=== PATIENT | female | born 1990 | race Caucasian/White ===

== ENCOUNTER 2020-04-06 20:10 | Emergency (ER) | payer SELFPAY ==
[2020-04-06] MEDS ORDERED: predniSONE 20 MG TAB ONE (20:53)
[2020-04-06] MEDS ORDERED: FAMOTIDINE 20 MG TAB ONE (20:53)
--- NOTE | 2020-04-06 21:34 | ER ---
Nurse's Notes [facility] Name: Nitza Mckee Age: 30 yrs Sex: Female : 1990 Arrival Date: 04/06/2020 Time: 20:15 Bed 5 Private MD: Diagnosis: Contact Dermatitis Presentation: 04/06 20:23 Chief complaint: Patient states: "I think I am having an allergic reaction to poison jd3 irais mostly on my right arm for 2 weeks now. it is starting to spread and get painful.". Coronavirus screen: At this time, the client does not indicate any symptoms associated with coronavirus-19. Ebola Screen: Patient negative for fever greater than or equal to 101.5 degrees Fahrenheit, and additional compatible Ebola Virus Disease symptoms. Onset: The symptoms/episode began/occurred 2 week(s) ago. Anaphylaxis evaluation, no signs or symptoms of anaphylaxis were noted. Initial Sepsis Screen: Does the patient meet any 2 criteria? No. Patient's initial sepsis screen is negative. Does the patient have a suspected source of infection? No. Patient's initial sepsis screen is negative. Risk Assessment: Do you want to hurt yourself or someone else? Patient reports no desire to harm self or others. Onset of symptoms was March 25, 2020. 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 - Social history:: Smoking status: Reported history of juuling and/or vaping. Smoking status: . Screenin:25 Abuse screen: Denies threats or abuse. Nutritional screening: No deficits noted. ea Tuberculosis screening: No symptoms or risk factors identified. Fall Risk None identified. Assessment: 20:26 General: Appears in no apparent distress. Behavior is appropriate for age. Pain: ea Complains of pain in right arm. Neuro: Level of Consciousness is awake, alert, obeys commands, Oriented to person, place, time, situation. Cardiovascular: Patient's skin is warm and dry. Respiratory: Airway is patent Respiratory effort is even, unlabored, Respiratory pattern is regular, symmetrical. Derm: Rash noted that is itchy, on abdomen, right arm, left arm and left leg. 21:43 Reassessment: Patient and/or family updated on plan of care and expected duration. Pain ea level reassessed. Patient is alert, oriented x 3, equal unlabored respirations, skin warm/dry/pink. Discharge instruction given to patient, verbalized the understanding of instruction. Pt left ED ambulatory tolerating well. Vital Signs: 20:26 BP 115 / 88; Pulse 83; Resp 18 S; Temp 98.3(TE); Pulse Ox 100% on R/A; Weight 68.04 kg jd3 (R); Height 5 ft. 1 in. (154.94 cm) (R); Pain 2/10; 20:26 Body Mass Index 28.34 (68.04 kg, 154.94 cm) jd3 ED Course: 20:15 Patient arrived in ED. am2 20:16 Artie Smith MD is Attending Physician. [facility] 20:25 Triage completed. jd3 20:25 Phyllis Waller RN is Primary Nurse. ea 20:25 Arm band placed on right wrist. Patient placed in an exam room, on a stretcher, on ea pulse oximetry. 20:28 Patient has correct armband on for positive identification. Bed in low position. Call ea light in reach. Side rails up X 1. 21:32 Sierra Hernandez MD is Referral Physician. [facility] 21:32 Scooby Todd MD is Referral Physician. [facility] 21:43 No provider procedures requiring assistance completed. Patient did not have IV access ea during this emergency room visit. Administered Medications: 20:41 Drug: predniSONE 60 mg Route: PO; ea 21:44 Follow up: Response: No adverse reaction ea 20:41 Drug: Pepcid 20 mg Route: PO; ea 21:45 Follow up: Response: No adverse reaction ea Outcome: 21:33 Discharge ordered by . [facility] 21:43 Discharged to home ambulatory. ea 21:43 Condition: stable 21:43 Discharge instructions given to patient, Instructed on discharge instructions, follow up and referral plans. medication usage, Demonstrated understanding of instructions, follow-up care, medications, Prescriptions given X 3. 21:44 Patient left the ED. ea Signatures: Denise Haque Elena RN RN Patrice Carver RN RN jd3 Artie Smith MD MD mh7
--- NOTE | 2020-04-06 21:34 | EDPHYS ---
Physician Documentation [facility] Name: Nitza Mckee Age: 30 yrs Sex: Female : 1990 Arrival Date: 04/06/2020 Time: 20:15 Bed 5 Private MD: ED Physician Artie Smith HPI: 04/06 20:35 This 30 yrs old Female presents to ER via Ambulatory with complaints of mh7 Allergic Reaction. 20:35 The patient presents with rash, that is diffuse. Onset: The symptoms/episode mh7 began/occurred 2 week(s) ago. Associated signs and symptoms: Pertinent negatives: abdominal pain, Altered mental status chest pain, dysphagia, fever, headache, hives, Light headed nausea, shortness of breath, swelling, Syncope vomiting. 20:36 Possible causes: poison irais. At home the patient or guardian has treated the symptoms mh7 with Benadryl, Calamine lotion. Severity of symptoms: At their worst the symptoms were moderate 5 day(s) ago, in the emergency department the symptoms are unchanged. 20:36 Associated signs and symptoms: Pertinent positives: rash, itching. Severity of mh7 symptoms: in the emergency department the symptoms. 20:51 Patient states that she was working in [employer] two weeks ago that she later found out mh7 was poison irais. She has an itchy rash to both arms, abdomen, and both legs. She has been applying topical solutions and taking Benadryl as needed without improvement. She denies any fever, nausea, vomiting, SOB, or other complaints.. 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 - Social history:: Smoking status: Reported history of juuling and/or vaping. Smoking status: . ROS: 20:36 Constitutional: Negative for fever, chills, and weight loss, Eyes: Negative for injury, mh7 pain, redness, and discharge, ENT: Negative for injury, pain, and discharge, Neck: Negative for injury, pain, and swelling, Cardiovascular: Negative for chest pain, palpitations, and edema, Respiratory: Negative for shortness of breath, cough, wheezing, and pleuritic chest pain, Abdomen/GI: Negative for abdominal pain, nausea, vomiting, diarrhea, and constipation, Back: Negative for injury and pain, : Negative for injury, bleeding, discharge, and swelling, MS/Extremity: Negative for injury and deformity, Neuro: Negative for headache, weakness, numbness, tingling, and seizure, Psych: Negative for depression, anxiety, suicide ideation, homicidal ideation, and hallucinations, Endocrine: Negative for neck swelling, polydipsia, polyuria, polyphagia, and marked weight changes, Hematologic/Lymphatic: Negative for swollen nodes, abnormal bleeding, and unusual bruising. Exam: 20:41 Constitutional: This is a well developed, well nourished patient who is awake, alert, mh7 and in no acute distress. Head/Face: Normocephalic, atraumatic. Eyes: Pupils equal round and reactive to light, extra-ocular motions intact. Lids and lashes normal. Conjunctiva and sclera are non-icteric and not injected. Cornea within normal limits. Periorbital areas with no swelling, redness, or edema. ENT: Nares patent. No nasal discharge, no septal abnormalities noted. Tympanic membranes are normal and external auditory canals are clear. Oropharynx with no redness, swelling, or masses, exudates, or evidence of obstruction, uvula midline. Mucous membranes moist. Neck: Trachea midline, no thyromegaly or masses palpated, and no cervical lymphadenopathy. Supple, full range of motion without nuchal rigidity, or vertebral point tenderness. No Meningismus. Chest/axilla: Normal chest wall appearance and motion. Nontender with no deformity. No lesions are appreciated. Cardiovascular: Regular rate and rhythm with a normal S1 and S2. No gallops, murmurs, or rubs. Normal PMI, no JVD. No pulse deficits. Respiratory: Lungs have equal breath sounds bilaterally, clear to auscultation and percussion. No rales, rhonchi or wheezes noted. No increased work of breathing, no retractions or nasal flaring. Abdomen/GI: Soft, non-tender, with normal bowel sounds. No distension or tympany. No guarding or rebound. No evidence of tenderness throughout. Back: No spinal tenderness. No costovertebral tenderness. Full range of motion. 20:41 MS/ Extremity: Pulses equal, no cyanosis. Neurovascular intact. Full, normal range of motion. Neuro: Awake and alert, GCS 15, oriented to person, place, time, and situation. Cranial nerves II-XII grossly intact. Motor strength 5/5 in all extremities. Sensory grossly intact. Cerebellar exam normal. Normal gait. Psych: Awake, alert, with orientation to person, place and time. Behavior, mood, and affect are within normal limits. 20:41 Skin: rash a moderate rash is noted, rash can be described as linear, raised, contact dermatitis, on the abdomen, right arm, left arm, right leg and left leg. Vital Signs: 20:26 BP 115 / 88; Pulse 83; Resp 18 S; Temp 98.3(TE); Pulse Ox 100% on R/A; Weight 68.04 kg jd3 (R); Height 5 ft. 1 in. (154.94 cm) (R); Pain 2/10; 20:26 Body Mass Index 28.34 (68.04 kg, 154.94 cm) jd3 MDM: 20:35 Patient medically screened. [facility] 21:31 Differential diagnosis: anaphylaxis, angioedema, non IgE mediated drug reaction 7 urticaria, Contact Dermatitis. Data reviewed: vital signs, nurses notes. Data interpreted: Pulse oximetry: on room air is 100 %. Interpretation: normal. Counseling: I had a detailed discussion with the patient and/or guardian regarding: the historical points, exam findings, and any diagnostic results supporting the discharge/admit diagnosis, the need for outpatient follow up, a complaint supervisor, to return to the emergency department if symptoms worsen or persist or if there are any questions or concerns that arise at home. Response to treatment: the patient's symptoms have markedly improved after treatment. Administered Medications: 20:41 Drug: predniSONE 60 mg Route: PO; ea 21:44 Follow up: Response: No adverse reaction ea 20:41 Drug: Pepcid 20 mg Route: PO; ea 21:45 Follow up: Response: No adverse reaction ea Disposition: 04/06/20 21:33 Discharged to Home. Impression: Contact Dermatitis. - Condition is Stable. - Discharge Instructions: Contact Dermatitis, [id number]. - Prescriptions for Pepcid 20 mg Oral Tablet - take 1 tablet by ORAL route every 12 hours for 5 days; 10 tablet. Zyrtec 10 mg Oral Tablet - take 1 tablet by ORAL route once daily .; 10 tablet. Prednisone 20 mg Oral Tablet - take 2 tablet by ORAL route once daily for 5 days; 10 tablet. - Work release form, Medication Reconciliation Form, Thank You Letter, Antibiotic Education, Prescription Opioid Use form. - Follow up: Sierra Hernandez MD; When: 1 - 2 days; Reason: Worsening of condition, Recheck today's complaints. Follow up: Scooby Todd MD; When: 1 - 2 days; Reason: Worsening of condition, Recheck today's complaints. - Problem is an ongoing problem. - Symptoms have improved. Signatures: Phyllis Waller RN RN ea Davies, Jonathon, RN RN jd3 Holmes, Maurice, MD MD mh7 Corrections: (The following items were deleted from the chart) 20:37 20:35 Possible causes: [place] [id number] 21:44 21:33 04/06/2020 21:33 Discharged to Home. Impression: Contact Dermatitis. Condition is ea Stable. Forms are Medication Reconciliation Form, Thank You Letter, Antibiotic Education, Prescription Opioid Use. Follow up: Sierra Hernandez; When: 1 - 2 days; Reason: Worsening of condition, Recheck today's complaints. Follow up: Scooby Todd; When: 1 - 2 days; Reason: Worsening of condition, Recheck today's complaints. Problem is an ongoing problem. Symptoms have improved. mh7
[2020-04-06 21:51] VITALS: BP 115/88; TEMP 98.3; O2SAT 100
== END 2020-04-06 21:44 | disposition home or self-care (01) ==
LOC: ER 20:10
DX: L25.9 Unspecified contact dermatitis, unspecified cause (principal)
CPT/HCPCS: 99283; J7512

== ENCOUNTER 2022-04-13 06:06 | Emergency (ER) | payer OTHER, SELFPAY ==
[2022-04-13 06:36] LABS: Urine Blood 3+ (Negative); Urine Glucose Negative (Negative); Urine Protein 1+ (Negative); Urine Specific Gravity 1.025 (1.005-1.030)
[2022-04-13 06:51] LABS: Urine Mucus Slight /HPF (None Seen); Urine RBC >50 /HPF (None Seen)
[2022-04-13 06:57] LABS: Urine Specific Gravity/Preg 1.025 (1.005-1.030)
[2022-04-13] MEDS ORDERED: NA CHLORIDE 0.9% 1,000 ML ONE (07:12)
--- NOTE | 2022-04-13 07:35 | RAD REPORT ---
EXAM DESCRIPTION: US - Transvaginal OB - 04/13/2022 7:02 am CLINICAL HISTORY: VAGINAL BLEEDING COMPARISON: No comparisons FINDINGS: Endometrial stripe is 13 mm in thickness with no mass or polyp identified. There is no ges tational sac or sac remnant identifiable. The endometrium - myometrium interface is preserved. A larg e 5.3 centimeter partially calcified fibroid is present in the anterior fundus. The patient indicated that this is a known finding but no comparison is available to confirm stability of size. Normal size right ovary is seen with normal stromal blood flow pattern. No right ovarian or right adn exa abnormality seen. Left ovary is identified overall normal in size. Blood flow was seen in the ovarian stroma. A partial ly exophytic or abutting 14 millimeter focus of isoechoic tissue is seen. This does not have the appe arance of an ectopic . This could be an isoechoic complex cyst or possibly a small solid mas s. IMPRESSION: No intrauterine gestational sac or sac remnant identifiable. No measurable hemorrhagic c omponent within an otherwise unremarkable endometrial canal. Small focus of isoechoic tissue abutting or extending off of the normal size left ovary. This does no t have typical ectopic appearance and may be a complex cyst or small solid mass. No finding seen considered suspicious for ectopic . Short-term follow-up can be obtained if serial beta HCG values indicate ongoing . Follow-up sonography in 4-6 months should be obtai khalif to re-evaluate the left ovarian finding to assure stability or resolution.
[2022-04-13 09:31] LABS: Absolute Lymphocytes (CBC) 1.2 K/uL (0.7-4.9); Hematocrit 42.3 % (36.0-45.0); Lymphocytes % 12.2 % (15.3-44.8); MCV 93.5 fL (80-100); MPV 7.2 fL (7.6-11.3); RBC Red Blood Cell Count 4.53 M/uL (3.86-4.86)
[2022-04-13 09:57] LABS: Potassium 3.7 mmol/L (3.5-5.1)
--- NOTE | 2022-04-13 10:08 | EDPHYS ---
Physician Documentation [facility] Name: Nitza Mckee Age: 32 yrs Sex: Female : 1990 Arrival Date: 04/13/2022 Time: 06:09 Bed 18 Private MD: ED Physician Maninder Anaya HPI: 04/13 09:06 This 32 yrs old Female presents to ER via Ambulatory with complaints of [place]ia [place] carmen Vaginal Bleeding, + Preg <12wks. 09:06 The patient presents to the emergency department with vaginal bleeding, that is maria [place] carmen moderate. The estimated gestational age is 6 weeks. course: care: none. course: care:. Previous pregnancies: in previous pregnancies patient has had 6 week miscarriage. Associated signs and symptoms: The patient has no apparent associated signs or symptoms. The patient has not experienced similar symptoms in the past. 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 - Social history:: Smoking status: unknown. - Family history:: not pertinent. ROS: 09:06 Constitutional: Negative for fever, chills, and weight loss, Eyes: Negative for injury, maria [place] carmen pain, redness, and discharge, ENT: Negative for injury, pain, and discharge, Neck: Negative for injury, pain, and swelling, Cardiovascular: Negative for chest pain, palpitations, and edema, Respiratory: Negative for shortness of breath, cough, wheezing, and pleuritic chest pain, Abdomen/GI: Negative for abdominal pain, nausea, vomiting, diarrhea, and constipation, Back: Negative for injury and pain, MS/Extremity: Negative for injury and deformity, Skin: Negative for injury, rash, and discoloration, Neuro: Negative for headache, weakness, numbness, tingling, and seizure, Psych: Negative for depression, anxiety, suicide ideation, homicidal ideation, and hallucinations, Allergy/Immunology: Negative for hives, rash, and allergies, Endocrine: Negative for neck swelling, polydipsia, polyuria, polyphagia, and marked weight changes, Hematologic/Lymphatic: Negative for swollen nodes, abnormal bleeding, and unusual bruising. 09:06 : Positive for vaginal bleeding. Exam: : Constitutional: This is a well developed, well nourished patient who is awake, alert, maria del carmen and in no acute distress. Head/Face: Normocephalic, atraumatic. Eyes: Pupils equal round and reactive to light, extra-ocular motions intact. Lids and lashes normal. Conjunctiva and sclera are non-icteric and not injected. Cornea within normal limits. Periorbital areas with no swelling, redness, or edema. ENT: Nares patent. No nasal discharge, no septal abnormalities noted. Tympanic membranes are normal and external auditory canals are clear. Oropharynx with no redness, swelling, or masses, exudates, or evidence of obstruction, uvula midline. Mucous membranes moist. Neck: Trachea midline, no thyromegaly or masses palpated, and no cervical lymphadenopathy. Supple, full range of motion without nuchal rigidity, or vertebral point tenderness. No Meningismus. Chest/axilla: Normal chest wall appearance and motion. Nontender with no deformity. No lesions are appreciated. Cardiovascular: Regular rate and rhythm with a normal S1 and S2. No gallops, murmurs, or rubs. Normal PMI, no JVD. No pulse deficits. Respiratory: Lungs have equal breath sounds bilaterally, clear to auscultation and percussion. No rales, rhonchi or wheezes noted. No increased work of breathing, no retractions or nasal flaring. Abdomen/GI: Soft, non-tender, with normal bowel sounds. No distension or tympany. No guarding or rebound. No evidence of tenderness throughout. Back: No spinal tenderness. No costovertebral tenderness. Full range of motion. Skin: Warm, dry with normal turgor. Normal color with no rashes, no lesions, and no evidence of cellulitis. MS/ Extremity: Pulses equal, no cyanosis. Neurovascular intact. Full, normal range of motion. Neuro: Awake and alert, GCS 15, oriented to person, place, time, and situation. Cranial nerves II-XII grossly intact. Motor strength 5/5 in all extremities. Sensory grossly intact. Cerebellar exam normal. Normal gait. Psych: Awake, alert, with orientation to person, place and time. Behavior, mood, and affect are within normal limits. 09:09 : CVA tenderness, is absent. [facility] Vital Signs: 06:26 BP 118 / 73; Pulse 83; Resp 18; Temp 98.2; Pulse Ox 98% on R/A; Weight 70.31 kg; Height kd3 5 ft. 1 in. (154.94 cm); Pain 0/10; 07:30 BP 120 / 78; Pulse 88; Resp 16; Pulse Ox 99% ; bp 08:30 BP 111 / 63; Pulse 80; Resp 16; Pulse Ox 99% ; bp 09:30 BP 117 / 64; Pulse 87; Resp 16; Pulse Ox 99% ; bp 10:16 BP 121 / 69; Pulse 85; Resp 16; Pulse Ox 99% ; bp 06:26 Body Mass Index 29.29 (70.31 kg, 154.94 cm) kd3 MDM: 07:05 Patient medically screened. [facility] 09:09 Differential diagnosis: Data reviewed: vital signs, nurses notes, lab test result(s), [facility] radiologic studies, ultrasound. 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 Counseling: I had a detailed discussion with the patient and/or guardian regarding: the historical points, exam findings, and any diagnostic results supporting the discharge/admit diagnosis, lab results, radiology results, the need for outpatient follow up, for definitive care, an OB/Gyne specialist. 04/13 06:34 Order name: CBC with Diff; Complete Time: 10:07 sd2 04/13 06:34 Order name: BMP; Complete Time: 10:07 sd2 04/13 06:34 Order name: Abo/rh Typing sd2 04/13 06:34 Order name: HCG-Quantitative; Complete Time: 10:07 sd2 04/13 06:34 Order name: Urine Microscopic Only; Complete Time: 07:07 sd2 04/13 06:36 Order name: Urine Dipstick-Ancillary; Complete Time: 07:07 EDMS 04/13 06:34 Order name: Urine Dipstick-Ancillary (obtain specimen); Complete Time: 06:36 sd2 04/13 06:39 Order name: Urine --Ancillary (enter results); Complete Time: 07:07 mw2 04/13 06:41 Order name: Transvaginal OB; Complete Time: 07:48 EDMS Administered Medications: 07:15 Drug: NS 0.9% 1000 ml Route: IV; Rate: 1 bolus; Site: left hand; bp 10:18 Follow up: IV Status: Completed infusion; IV Intake: 1000ml bp Disposition Summary: 04/13/22 10:07 Discharge Ordered Location: Home maria [place] carmen Problem: new maria del carmen Symptoms: have improved maria del carmen Condition: Stable maria del carmen Diagnosis - Threatened maria del carmen Followup: maria del carmen - With: Private Physician - When: 2 - 3 days - Reason: Recheck today's complaints, Continuance of care, Re-evaluation by your physician Followup: maria del carmen - With: - When: 2 - 3 days - Reason: Recheck today's complaints, Re-evaluation by your physician Discharge Instructions: - Discharge Summary Sheet maria del carmen - Care maria del carmen - Threatened Miscarriage maria del carmen - Vaginal Bleeding During , First Trimester maria del carmen - First Trimester of , [id number] maria del carmen - First Trimester of maria del carmen - Threatened Miscarriage, Peyk-ed-[id number] maria del carmen Forms: - Medication Reconciliation Form maria del carmen - Thank You Letter maria del carmen - Antibiotic Education maria del carmen - Prescription Opioid Use maria del carmen 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 EDMS EDMS
--- NOTE | 2022-04-13 10:08 | ER ---
Nurse's Notes [facility] Name: Nitza Mckee Age: 32 yrs Sex: Female : 1990 Arrival Date: 04/13/2022 Time: 06:09 Bed 18 Private MD: Diagnosis: Threatened Presentation: 04/13 06:26 Chief complaint: Patient states: I am about 6 weeks and i started bleeding kd3 this morning. I have had a really bad miscarriage in the past. I have no living children. The bleeding is about the amount of my normal period and i am not in any pain that is more than just some cramping. I am not passing any abnormal large clots. Coronavirus screen: Vaccine status: Patient reports receiving the 2nd dose of the covid vaccine. Ebola Screen: No symptoms or risks identified at this time. Initial Sepsis Screen: Does the patient meet any 2 criteria? No. Patient's initial sepsis screen is negative. Does the patient have a suspected source of infection? No. Patient's initial sepsis screen is negative. Risk Assessment: Do you want to hurt yourself or someone else? Patient reports no desire to harm self or others. Onset of symptoms was April 13, 2022. 06:26 Method Of Arrival: Ambulatory kd3 06:26 Acuity: THIAGO 3 kd3 Triage Assessment: 06:29 General: Appears in no apparent distress. Behavior is calm, cooperative. Pain: Denies kd3 pain. : Reports vaginal bleeding that is bright red, moderate flow. 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 - Social history:: Smoking status: unknown. - Family history:: not pertinent. Screenin:30 Abuse screen: Denies threats or abuse. Denies injuries from another. Nutritional kd3 screening: No deficits noted. Tuberculosis screening: No symptoms or risk factors identified. Fall Risk None identified. Assessment: 07:00 General: RECD REPORT FROM AKILAH BARAHONA. 32YO WF P/W VAG BLEEDING. U/S COMPLETED. bp 08:00 Reassessment: LABS REJECTED FOR LABEL MISALIGNMENT. RECOLLECT PENDING. bp 09:00 Reassessment: PHLEBOTOMY CONTACTED FOR LAB DRAW. bp 10:16 Reassessment: PT DC HOME AMBULATORY. bp 10:18 Obstetrical Assessment: General assessment: awake and alert, skin warm and dry, bp respirations even and unlabored. Vital Signs: 06:26 BP 118 / 73; Pulse 83; Resp 18; Temp 98.2; Pulse Ox 98% on R/A; Weight 70.31 kg; Height kd3 5 ft. 1 in. (154.94 cm); Pain 0/10; 07:30 BP 120 / 78; Pulse 88; Resp 16; Pulse Ox 99% ; bp 08:30 BP 111 / 63; Pulse 80; Resp 16; Pulse Ox 99% ; bp 09:30 BP 117 / 64; Pulse 87; Resp 16; Pulse Ox 99% ; bp 10:16 BP 121 / 69; Pulse 85; Resp 16; Pulse Ox 99% ; bp 06:26 Body Mass Index 29.29 (70.31 kg, 154.94 cm) kd3 ED Course: 06:09 Patient arrived in ED. bp1 06:26 Akilah Miller, RN is Primary Nurse. kd3 06:29 Triage completed. kd3 06:29 Arm band placed on right wrist. kd3 06:30 Patient has correct armband on for positive identification. kd3 06:58 CBC with Diff Sent. kd3 06:58 BMP Sent. kd3 06:58 Abo/rh Typing Sent. kd3 06:58 HCG-Quantitative Sent. kd3 07:04 Transvaginal OB In Process Unspecified. EDMS 07:05 Maninder Anaya MD is Attending Physician. maria del carmen 08:10 Primary Nurse role handed off by Akilah Miller, RN em1 08:58 Sergio Roca, JUN is Primary Nurse. bp 10:07 Mohit Newton MD is Referral Physician. maria del carmen 10:16 No provider procedures requiring assistance completed. IV discontinued, intact, bp bleeding controlled, No redness/swelling at site. Pressure dressing applied. Administered Medications: 07:15 Drug: NS 0.9% 1000 ml Route: IV; Rate: 1 bolus; Site: left hand; bp 10:18 Follow up: IV Status: Completed infusion; IV Intake: 1000ml bp Medication: 10:16 VIS not applicable for this client. bp Intake: 10:18 IV: 1000ml; Total: 1000ml. bp Outcome: 10:07 Discharge ordered by . maria del carmen 10:16 Discharged to home ambulatory, with family. bp 10:16 Condition: stable 10:16 Discharge instructions given to patient, Instructed on discharge instructions, follow up and referral plans. Demonstrated understanding of instructions, follow-up care. 10:20 Patient left the ED. bp Signatures: Dispatcher [employer] EDPR Maninder Anaya MD MD cha Martinez, Redd em1 Sergio Roca, RN RN bp Ashley Trinidad Kyli RN RN kd3
[2022-04-13 10:26] VITALS: TEMP 98.2
[2022-04-13 10:27] VITALS: O2SAT 99
[2022-04-13 10:30] VITALS: BP 121/69
== END 2022-04-13 10:20 | disposition home or self-care (01) ==
LOC: ER 06:06
DX: O20.0 Threatened abortion (principal); Z3A.01 Less than 8 weeks gestation of pregnancy
CPT/HCPCS: 96361; 85025; 80048; 36415; 86900; 81025; 86901; 84702; 76817; 96360; 99284; J7030; 81003; 81015